=== PATIENT | male | born 1975 | race Caucasian/White ===

== ENCOUNTER 2017-06-05 09:25 | Day surgery (SDC) | payer OTHER ==
--- NOTE | 2017-06-04 12:43 | PDGENHP ---
History and Physical - Chief Complaint LEFT HIP PAIN - History of Present Illness Diagnosis: 1. 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 Right~Early Osteoarthritis 3. ~~Left Borderline Hip Dysplasia HISTORY OF PRESENT ILLNESS: Stephenis a 42 y.o.~very ~active male~who I have had the pleasure to consult on today. I have enjoyed meeting him. He~lives in [place]. 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 ~He~is ; he~has no~children. ~Stephenenjoys trail running , mountain biking, hiking and snowboarding. Samuel's bilateral~hip pain (L>R)~started March 2015, with no~recalled trauma or injury, and with no~previous complaints. Stephendoes not have~a known history of hip dysplasia. Presentation today is of anterior and posterior bilateral~hip pain. ~The hip does not~wake him~at night and does~click and catch on him. Sitting does not present a problem~for him. Stephendoes not~report suffering from lower back pain episodes. Stephenhas not~participated in physical therapy and has not~tried other conservative measures. Stephenhas not~utilized medication for pain management. Stephenunderstands that he~has a hip and pelvis problem which should be researched and wishes to get a better understanding of his~hip status, followed by an establishment of a treatment strategy, hoping heHeathwould be able to get back to his~well being active life. History: Past medical history: ~ None which is relevant Relevant familial history: Father/grandfather: [place] in 60s with HTN Past surgical history: No. Surgery Anesthesia 1 VATs bilateral (spoontaneous pneumotorax) general Stephendenies problematic issues with general anesthesia in the past. I have reviewed, verified and agree with the past medical, surgical, family and social history. Current Medications:Heathcurrently has no medications in their medication list. ALLERGIES:~has No Known Allergies. Objective: Physical Examination: Stephenis 6~feet 0~inches tall and weighs 160~Lbs. Stephenis AAO x3; he~is well- nourished, in NAD. Skin is warm and dry. ~Breathing is non-labored. ~CV with RRR by pulse. Abdomen is soft, NTND. Currently, he~walks with a abnormal antalgic~gait favoring RIGHT LEG. Trendelenburg sign is negative~and proprioception is normal, both~sides. He~presents with no~signs of joint laxity. Beightons Score: 0 Lower spine examination is negative~for sciatic or femoral nerve irritation with negative~SLR &~femoral stretch tests. Range of motion of the spine is normal~for flexion, extension, and rotations, with no~associated pain. Strength, Sensation and pulses are normal - bilaterally Ankles and knees exams are normal~and no~mal-alignment is evident. He~has no leg length discrepancy. Thigh circumference is symmetric~with no evidence for muscle atrophy~on both~ sides. Hip ROM (degrees): FL ER At 90~hip FL IR At 90~hip FL AB AD EX IR Neutral hip ER Neutral hip R 105 50 20 30 10 5 35 15 L 100 50 20 30 5 10 35 15 Specific hip and pelvis tests: Impingement Test NED Roll Add. Longus R +++ +++ Negative + L +++ +++ Negative + Glut. Med ITB Posterior Imp R Negative 5/5 strength Negative 5/5 strength Negative L Negative 5/5 strength Negative 5/5 strength Negative Squeeze test measured strong Bony Symphysis pubis is painful~to touch while concentric activity of the rectus abdominis, does~produce pain at its insertion. Ilio Psos specific tests are~positive for pain during cycling~for both hips~and remarkable for~non painful snap~ON LEFT. HF has good strength, minimal pain both hips. Posterior/lateral~capsule tenderness bilaterally Greater trochanteric burse is pain free~on both hips. Piriformis tests: FAIR is negative, with no~local signs of neuritis related to sciatic nerve. SIJs examination is normal~with normal~NED in relation and local tenderness. Hamstrings tests are negative~functional contraction and negative~tendinopathy both hips. On a daily basis, the following percentages reflect Samuel's overall total pain: Deep hip: 100% Imaging: Radiology studies which I have personally reviewed, analyzed and measured are below: XR: AP of the hip and pelvis: Performed in a good~technique Coccyx to pubic symphysis distance 1~cm. 0~degrees [place] Lines are preserved. Minimal~Pathological signs are seen in the Symphysis Pubis. Minimal~Pathological signs are seen at the Ischial tuberosity. ~ Specific measurements show: NSA~ LCE Sourcil~Angle Sharp's angle Lat. Cam Lat. Pincer C.Over~sign Head~Coverage % ATDmm R N 29 7 41 + - - N N L N 24 10 44 + - - N N Pos. wall sign ISS NAD ~~Dysplasia Comments R Negative Negative 23~mm Negative L Negative Negative 19~mm + Sclerosis Sup. Lat. OA Cysts Joint Space-WBZ Joint Space-Medial R + + + 4.6~mm 2.4~mm L Negative Negative Negative 5.2~mm 4.1~mm RIGHT Hip: labral calcification, narrowing joint space, pitting cyst X Table lateral: Anterior cam lesion is seen~on both hips. Alpha Angle: ~ Right 83~dergrees Left 86~degrees MRI shows: Right hip with pitting cyst in femoral neck, thinning cartilage on the right Impression and plan: Samuel~is a 42 y.o.~active male~suffering from symptomatic bilateral~hip pain due to Bilateral~Femoroacetabular impingement (KACEY) Cam type, with~resultant labral tear, Right~Early Osteoarthritis~causing significant disability to him~and altering his~sport and life activities. Physical examination, imaging, and his~story correspond with the diagnosis mentioned above. I explained that femoroacetabular impingement (KACEY) arises due to a bony or soft tissue conflict between the femur (ball) and acetabulum (socket) caused by an abnormality in the shape of the hip joint. Over time, repetitive impingement can result in damage to the labrum and adjacent surface cartilage within the socket, ultimately giving rise to progressive osteoarthritis of the hip. I explained that although a labral tear can be a source of pain, it is rarely the root of the problem and typically occurs secondary to an underlying abnormality in the shape and mechanics of the hip joint. ~ I reviewed conservative treatment options for KACEY including activity modification to avoid positions of impingement, physical therapy, non-steroidal anti-inflammatory medications, and various injections (corticosteroid and PRP) aimed at reducing inflammation in the hip joint or/and preventing dynamic impingement. PRP injections may promote healing and reduce symptoms in certain cases but it will not repair chronically damaged tissue. Although these measures may help to buy time and reduce current level of symptoms, they are not a definitive solution to the problem given the underlying abnormality in the shape of the hip joint. Patients who have failed conservative management and continue to experience symptoms are candidates for hip arthroscopy, a minimally invasive surgery that can definitively address the underlying problem. Hip arthroscopy typically includes treating the labrum with either repair or reconstruction of the torn labrum; as well as addressing the underlying abnormalities by restoring the normal shape to the hip joint. ~If the cartilage is damaged a Microfracture surgical procedure may also be necessary to help stimulate the growth of fibrocartilage. ~If a patient requires a labral reconstruction or a Microfracture, the initial rehabilitation from the surgery may take longer, but the rodent exterminator results are typically favorable. We discussed the fact that because the cartilage in his RIGHT hip has diminished , the rodent exterminator outcome after a hip arthroscopy is less predictable. ~For this reason the likelihood of having a total joint replacement on the right side is higher in the future. At this point his options for Right side are: 1. Do nothing 2. Injections that can take pain away for a short period 3. Hip arthroscopy 4. Wait for total joint replacement At this stage considering his young age and (high) activity level I still believe that hip arthroscopy would be the next best step for him. The left hip is in good shape without the early arthritic signs seen on the right, for this side Hip Arthroscopy would be the best plan of care. I reviewed the technical aspects of hip arthroscopy including risks, benefits, and expected course of recovery. Samuel~understands that hip arthroscopy is a minimally invasive outpatient procedure carried out through small incisions on the outer aspect of the hip joint. During surgery, the labral tear will be identified and either repaired or reconstructed~using bone anchors and suture material. Additionally, any excessive bone will be removed with a high-speed elton to reshape the hip joint and restore normal anatomy. Risks include infection, bleeding, injury to nearby nerves or vessels, stiffness, persistent pain, instability, venous thromboembolic disease, and traction related complications including temporary foot numbness. Rarely, revision surgery may be required to address these problems. Overall recovery takes approximately 4~ 8~months depending on the extent of damage and degree of repair. In the event that the labral tissue quality is inadequate for successful repair and healing, Samuel~understands that a labral reconstruction will be performed. This procedure entails placing a cadaver tissue graft within the hip joint and stabilizing it with bone anchors to build a new labrum. The overall recovery time for labral reconstruction is similar to that of labral repair, although the surgical procedure takes longer to perform. Stephenwill review the info presented. In order to obtain more detailed information regarding the alignment, orientation, and shape of the bony hip and pelvis I will order a CT scan to be performed. The results of the CT scan, including femoral torsion and acetabular version measured values and 3D images, will aid me in deciding on the best treatment strategy and surgical pre-planning. Stephenwill contact us if he~wishes to pursue further treatment in the future. Stephenis happy with this plan. I have also supplied him~with handouts, outlining the expected surgical treatment and rehab involved. I wish~Stephenall the best, ~~ Giancarlo Del Castillo, PAC History Information - Allergies/Home Medication List Allergies/Adverse Reactions: No Known Allergies Allergy (Unverified 10/26/10 19:15) Home Medications: NO HOME MEDICATIONS 10/26/10 [Last Taken Unknown] I have personally reviewed and updated: medical history - Social History Smoking Status: Never smoked Review of Systems Review of Systems: Physical Exam Physical Exam:
[2017-06-05] MEDS ORDERED: ACETAMINOPHEN 500 MG TAB PO ONE (09:48)
[2017-06-05] MEDS ORDERED: PREGABALIN 150 MG CAP PO ONE (09:48)
[2017-06-05] MEDS ORDERED: ceFAZolin 2 GM/SWFI 2 GM/20 ML SYR IVP ONE ×2 (09:48→10:00)
[2017-06-05] MEDS ORDERED: MIDAZOLAM 2 MG/2 ML VIAL IVP ONE (10:23)
--- NOTE | 2017-06-05 10:23 | PDANEPAE ---
ANE History of Present Illness 42 yo for hip arthoscopy ANE Past Medical History - Cardiovascular History Hx Hypertension: No Hx Arrhythmias: No Hx Chest Pain: No Hx Coronary Artery / Peripheral Vascular Disease: No Hx CHF / Valvular Disease: No Hx Palpitations: No - Pulmonary History Hx COPD: No Hx Asthma/Reactive Airway Disease: No Hx Recent Upper Respiratory Infection: No Hx Oxygen in Use at Home: No Hx Sleep Apnea: No Sleep Apnea Screening Result - Last Documented: Negative - Neurologic History Hx Cerebrovascular Accident: No Hx Seizures: No Hx Dementia: No - Endocrine History Hx Diabetes: No - Renal History Hx Renal Disorders: No - Liver History Hx Hepatic Disorders: No - Neurological & Psychiatric Hx Hx Neurological and Psychiatric Disorders: No - Cancer History Hx Cancer: No - Congenital Disorder History Hx Congenital Disorders: No - GI History Hx Gastrointestinal Disorders: No - Chronic Pain History Chronic Pain: Yes (LT HIP) - Surgical History Prior Surgeries: SPONT PNEUMOTHORAX EDGAR. SURGICAL REPAIRS ANE Review of Systems Review of Systems: - Exercise capacity METS (RN): 4 METS ANE Patient History - Allergies Allergies/Adverse Reactions: No Known Allergies Allergy (Unverified 10/26/10 19:15) - Home Medications Home medications: home medication list seen and reviewed Home Medications: NO HOME MEDICATIONS 10/26/10 [Last Taken Unknown] - NPO status NPO Status: no food or drink >8 hours - Smoking Hx Smoking Status: Never smoked ANE Labs/Vital Signs - Vital Signs Height: 6 ft Weight: 72.575 kg ANE Physical Exam - Airway Neck exam: FROM Mallampati Score: Class 2 - Pulmonary Pulmonary: no respiratory distress - Cardiovascular Cardiovascular: regular rate and rhythym - ASA Status ASA Status: I ANE Anesthesia Plan Anesthesia Plan: general endotracheal anesthesia
[2017-06-05 10:25] VITALS: PULSE 52
[2017-06-05] MEDS ORDERED: EPINEPHrine 30 MG/30 ML MDV (0.1 MG/0.1 ML) ONE (10:31)
[2017-06-05] MEDS ORDERED: BUPIVACAINE 0.25% 30 ML SDV ONE (10:31)
[2017-06-05] MEDS ORDERED: fentaNYL 250 MCG/5 ML INJ ONE (11:05)
[2017-06-05] MEDS ORDERED: PROPOFOL/EMULSION 500 MG/50 ML BOTTLE IV ONE ×2 (11:05→13:19)
[2017-06-05] MEDS ORDERED: REMIFENTANIL HCL 1 MG VIAL ONE ×2 (11:05→13:19)
[2017-06-05] MEDS ORDERED: ONDANSETRON 4 MG/2 ML VIAL ONE (14:48)
[2017-06-05] MEDS ORDERED: ROCURONIUM 100 MG/10 ML VIAL ONE (14:48)
[2017-06-05] MEDS ORDERED: KETOROLAC 30 MG/1 ML SDV ONE (14:48)
[2017-06-05] MEDS ORDERED: fentaNYL 100 MCG/2 ML INJ IVP PRN (15:03)
[2017-06-05] MEDS ORDERED: NALOXONE HCL 0.4 MG/ML INJ IVP PRN (15:03)
[2017-06-05] MEDS ORDERED: ONDANSETRON 4 MG/2 ML VIAL IVP PRN (15:03)
[2017-06-05] MEDS ORDERED: PROMETHAZINE HCL 25 MG/ML INJ IVP PRN (15:03)
[2017-06-05] MEDS ORDERED: OXYCODONE/APAP 5/325 TAB PO PRN (15:04)
--- NOTE | 2017-06-05 15:30 | POSTANESTH ---
Post Anesthetic Evaluation Cardiovascular Status: Normal, Stable Respiratory Status: Normal, Stable Level of Consciousness/Mental Status: Can Participate in Eval Pain Control: Adequate, Prn Tx Ordered Nausea/Vomiting Control: Adequate, Prn Tx Ordered Complications Possibly Related to Anesthesia: None Noted
[2017-06-05 16:10] VITALS: RESP 18
[2017-06-05 18:26] VITALS: BP 120/82; O2SAT 97
[2017-06-05 18:27] VITALS: TEMP 96.8
== END 2017-06-05 18:25 | disposition home or self-care (01) ==
LOC: FSGY 09:25
PROVIDERS: ATTEND Orthopaedic Surgery Sports Medicine
PROC: 4A1 Measurement and Monitoring, Physiological Systems, Monitoring (ICD-10-PCS; 2017-06-05)
PROC: 0SBB4ZZ Excision of Left Hip Joint, Percutaneous Endoscopic Approach (ICD-10-PCS; principal; 2017-06-05 11:00)
PROC: 0SQB4ZZ Repair Left Hip Joint, Percutaneous Endoscopic Approach (ICD-10-PCS; principal; 2017-06-05 11:00)
PROC: BQ111ZZ Fluoroscopy of Left Hip using Low Osmolar Contrast (ICD-10-PCS; 2017-06-05 11:00)
DX: M25.852 Other specified joint disorders, left hip (principal); M16.12 Unilateral primary osteoarthritis, left hip; Q65.89 Other specified congenital deformities of hip
CPT/HCPCS: C1713; J0171; J0690; J1885; J2250; J2405; J2704; J3010

== ENCOUNTER 2017-12-18 05:41 | Day surgery (SDC) | payer OTHER ==
--- NOTE | 2017-12-17 21:24 | PDGENHP ---
History and Physical - Chief Complaint RIGHT HIP PAIN - History of Present Illness Diagnosis: 1. Bilateral~Femoroacetabular impingement (KACEY) Cam type,~with~resultant labral tear; LEFT>RIGHT 2. Right~Early Osteoarthritis 3. ~~Left Borderline Hip Dysplasia HISTORY OF PRESENT ILLNESS: Stephenis a 42 y.o.~very~~active male~who I have had the pleasure to consult on today. 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 ~Stephenenjoys trail running , mountain biking, hiking and snowboarding. Samuel's~bilateral~hip pain (L>R)~started March 2015, with~no~recalled trauma or injury, and with no~previous complaints. Stephendoes not have~a known history of hip dysplasia. Presentation today is of~anterior and posterior~bilateral~hip pain. ~The hip~ does not~wake him~at night and does~click and catch on him. Sitting~does not present a problem~for him.~Stephendoes not~report suffering from lower back pain episodes. Stephenhas not~participated in physical therapy and has not~tried other conservative measures. Stephenhas not~utilized medication for pain management. Stephenunderstands that he~has a hip and pelvis problem which should be researched and wishes to get a better understanding of his~hip status, followed by an establishment of a treatment strategy, hoping he~would be able to get back to his~well being active life. History: Past medical history:~~ None which is relevant~ Relevant familial history:~Father/grandfather: [place] in 60s with HTN Past surgical history:~ No. Surgery Anesthesia 1 VATs bilateral (spoontaneous pneumotorax) general Stephendenies problematic issues with general anesthesia in the past. I have reviewed, verified and agree with the past medical, surgical, family and social history. Current Medications:~currently has no medications in their medication list. ALLERGIES:~has No Known Allergies. Objective: Physical Examination: Stephenis 6~feet 0~inches tall and weighs 160~Lbs. Stephenis AAO x3; ford~is well- nourished, in NAD. Skin is warm and dry. ~Breathing is non-labored. ~CV with RRR by pulse. Abdomen is soft, NTND. Currently,~he~walks with a abnormal~antalgic~gait favoring RIGHT LEG. Trendelenburg sign is~negative~and proprioception is normal,~both~sides. He~presents with no~signs of joint laxity. Beightons Score:~0 Lower spine examination is~negative~for sciatic or femoral nerve irritation with negative~SLR &~femoral stretch tests. Range of motion of the spine is normal~for flexion, extension, and rotations, with no~associated pain. Strength, Sensation and pulses are~normal -~bilaterally Ankles and knees exams are~normal~and no~mal-alignment is evident. He~has no leg length discrepancy. Thigh circumference is~symmetric~with no evidence for muscle atrophy~on both~ sides. Hip ROM (degrees): FL ER At 90~hip FL IR At 90~hip FL AB AD EX IR Neutral hip ER Neutral hip R 105 50 20 30 10 5 35 15 L 100 50 20 30 5 10 35 15 Specific hip and pelvis tests: Impingement Test NED Roll Add. Longus R +++ +++ Negative + L +++ +++ Negative + Glut. Med ITB Posterior Imp R Negative 5/5 strength Negative 5/5 strength Negative L Negative 5/5 strength Negative 5/5 strength Negative Squeeze test measured~strong Bony Symphysis pubis is~painful~to touch while concentric activity of the rectus abdominis, does~produce pain at its insertion. Ilio Psos specific tests are~positive for pain during cycling~for both hips~and remarkable for~non painful snap~ON LEFT. HF has~good strength, minimal pain~both hips. Posterior/lateral~capsule tenderness bilaterally Greater trochanteric burse is~pain free~on both hips. Piriformis tests: FAIR is~negative,~with no~local signs of neuritis related to sciatic nerve. SIJs examination is~normal~with normal~NED in relation and local tenderness. Hamstrings tests are~negative~functional contraction and negative~tendinopathy both hips. On a daily basis, the following percentages reflect~Samuel's overall total pain: Deep hip:~100% Imaging: Radiology studies which I have personally reviewed, analyzed and measured are below: XR: AP of the hip and pelvis: Performed in a~good~technique Coccyx to pubic symphysis distance~1~cm. 0~degrees [place] Lines are~preserved. Minimal~Pathological signs are seen in the Symphysis Pubis. Minimal~Pathological signs are seen at the Ischial tuberosity. ~ Specific measurements show: NSA~ LCE Sourcil~Angle Sharp's angle Lat. Cam Lat. Pincer C.Over~sign Head~Coverage % ATDmm R N 29 7 41 + - - N N L N 24 10 44 + - - N N Pos. wall sign ISS NAD ~~Dysplasia Comments R Negative Negative 23~mm Negative L Negative Negative 19~mm + Sclerosis Sup. Lat. OA Cysts Joint Space-WBZ Joint Space-Medial R + + + 4.6~mm 2.4~mm L Negative Negative Negative 5.2~mm 4.1~mm RIGHT Hip: labral calcification, narrowing joint space, pitting cyst X Table lateral: Anterior cam lesion is~seen~on both hips. Alpha Angle: ~ Right~83~dergrees Left~86~degrees MRI shows:~Right hip with pitting cyst in femoral neck, thinning cartilage~on the right~ Impression and plan:~ Samuel~is a 42 y.o.~active male~suffering from symptomatic bilateral~hip pain due to Bilateral~Femoroacetabular impingement (KACEY) Cam type,~with~resultant labral tear,~Right~Early Osteoarthritis~causing significant disability to him~and altering his~sport and life activities. Physical examination, imaging, and~his~story correspond with the diagnosis mentioned above. I explained that femoroacetabular impingement (KACEY) arises due to a bony or soft tissue conflict between the femur (ball) and acetabulum (socket) caused by an abnormality in the shape of the hip joint. Over time, repetitive impingement can result in damage to the labrum and adjacent surface cartilage within the socket, ultimately giving rise to progressive osteoarthritis of the hip. I explained that although a labral tear can be a source of pain, it is rarely the root of the problem and typically occurs secondary to an underlying abnormality in the shape and mechanics of the hip joint. ~ I reviewed conservative treatment options for KACEY including activity modification to avoid positions of impingement, physical therapy, non-steroidal anti-inflammatory medications, and various injections (corticosteroid and PRP) aimed at reducing inflammation in the hip joint or/and preventing dynamic impingement. PRP injections may promote healing and reduce symptoms in certain cases but it will not repair chronically damaged tissue. Although these measures may help to buy time and reduce current level of symptoms, they are not a definitive solution to the problem given the underlying abnormality in the shape of the hip joint. Patients who have failed conservative management and continue to experience symptoms are candidates for hip arthroscopy, a minimally invasive surgery that can definitively address the underlying problem. Hip arthroscopy typically includes treating the labrum with either repair or reconstruction of the torn labrum; as well as addressing the underlying abnormalities by restoring the normal shape to the hip joint. ~If the cartilage is damaged a Microfracture surgical procedure may also be necessary to help stimulate the growth of fibrocartilage. ~If a patient requires a labral reconstruction or a Microfracture, the initial rehabilitation from the surgery may take longer, but the watermelon harvesting supervisor results are typically favorable. We discussed the fact that because the cartilage in his RIGHT hip has diminished , the watermelon harvesting supervisor outcome after a hip arthroscopy is less predictable.~~For this reason the likelihood of having a total joint replacement on the right side is higher~in the future. At this point his options~for Right side~are: 1. Do nothing 2. Injections that can take pain away for a short period 3. Hip arthroscopy 4. Wait for total joint replacement At this stage considering his young age and (high) activity level I still believe that hip arthroscopy would be the next best step for him. The left hip is in good shape without the early arthritic signs seen on the right, for this side Hip Arthroscopy would be the best plan of care. I reviewed the technical aspects of hip arthroscopy including risks, benefits, and expected course of recovery.~Samuel~understands that hip arthroscopy is a minimally invasive outpatient procedure carried out through small incisions on the outer aspect of the hip joint. During surgery, the labral tear will be identified and either repaired or reconstructed~using bone anchors and suture material. Additionally, any excessive bone will be removed with a high-speed elton to reshape the hip joint and restore normal anatomy. Risks include infection, bleeding, injury to nearby nerves or vessels, stiffness, persistent pain, instability, venous thromboembolic disease, and traction related complications including temporary foot numbness. Rarely, revision surgery may be required to address these problems. Overall recovery takes approximately 4~ 8~months depending on the extent of damage and degree of repair. In the event that the labral tissue quality is inadequate for successful repair and healing,~Stephenunderstands that a labral reconstruction will be performed. This procedure entails placing a cadaver tissue graft within the hip joint and stabilizing it with bone anchors to build a new labrum. The overall recovery time for labral reconstruction is similar to that of labral repair, although the surgical procedure takes longer to perform. Samuel~will review the info presented. In order to obtain more detailed information regarding the alignment, orientation, and shape of the bony hip and pelvis I will order a CT scan to be performed. The results of the CT scan, including femoral torsion and acetabular version measured values and 3D images, will aid me in deciding on the best treatment strategy and surgical pre-planning. Stephenwill contact us if he~wishes to pursue further treatment in the future. Stephenis happy with this plan. I have also supplied~him~with handouts, outlining the expected surgical treatment and rehab involved. I wish~SamuelHeathall the best, ~~ Giancarlo Del Castillo, PAC History Information - Allergies/Home Medication List Allergies/Adverse Reactions: No Known Allergies Allergy (Verified 11/21/17 10:46) Home Medications: NK [No Known Home Meds] 11/21/17 [Last Taken Unknown] I have personally reviewed and updated: medical history - Social History Smoking Status: Never smoked Review of Systems Review of Systems: Physical Exam Physical Exam:
[2017-12-18] MEDS ORDERED: PREGABALIN 150 MG CAP PO ONE (06:02)
[2017-12-18] MEDS ORDERED: ceFAZolin 2 GM/DEXTROSE 100 ML IV ONE (06:02)
[2017-12-18] MEDS ORDERED: ACETAMINOPHEN 500 MG TAB PO ONE (06:02)
[2017-12-18] MEDS ORDERED: LR 1,000 ML IV ONE (06:05)
[2017-12-18] MEDS ORDERED: LIDOCAINE 1% 2 ML INJ ID PRN (06:05)
[2017-12-18] MEDS ORDERED: BUPIVACAINE 0.25% 30 ML SDV ONE (06:47)
[2017-12-18] MEDS ORDERED: EPINEPHrine 1 MG/ML INJ ONE (06:47)
[2017-12-18] MEDS ORDERED: EPINEPHrine 30 MG/30 ML MDV (0.1 MG/0.1 ML) ONE (06:47)
[2017-12-18] MEDS ORDERED: MIDAZOLAM 2 MG/2 ML VIAL IVP ONE (06:55)
--- NOTE | 2017-12-18 06:58 | PDANEPAE ---
ANE History of Present Illness right hip pain ANE Past Medical History - Cardiovascular History Hx Hypertension: No Hx Arrhythmias: No Hx Chest Pain: No Hx Coronary Artery / Peripheral Vascular Disease: No Hx CHF / Valvular Disease: No Hx Palpitations: No - Pulmonary History Hx COPD: No Hx Asthma/Reactive Airway Disease: No Hx Recent Upper Respiratory Infection: No Hx Oxygen in Use at Home: No Hx Sleep Apnea: No Sleep Apnea Screening Result - Last Documented: Negative Pulmonary History Comment: HX OF SPONTANEOUS PNEUMOTHORAX- BILATERALLY - Neurologic History Hx Cerebrovascular Accident: No Hx Seizures: No Hx Dementia: No - Endocrine History Hx Diabetes: No Hypothyroid: No Hyperthyroid: No Obesity: no - Renal History Hx Renal Disorders: No - Liver History Hx Hepatic Disorders: No - Neurological & Psychiatric Hx Hx Neurological and Psychiatric Disorders: No - Cancer History Hx Cancer: No - Congenital Disorder History Hx Congenital Disorders: No - GI History Hx Gastrointestinal Disorders: No - Other Health History Other Health History: NA - Chronic Pain History Chronic Pain: Yes (RIGHT HIP) - Surgical History Prior Surgeries: 06/05/17 LEFT HIP SCOPE AND FEMOROPLASTY WITH NAKIA HAYDEE. SPONT PNEUMOTHORAX EDGAR. SURGICAL REPAIRS ANE Review of Systems Review of systems is: negative Review of Systems: - Exercise capacity Exercise capacity: >=4 METS METS (RN): 4 METS ANE Patient History - Allergies Allergies/Adverse Reactions: No Known Allergies Allergy (Verified 11/21/17 10:46) - Home Medications Home Medications: NK [No Known Home Meds] 11/21/17 [Last Taken Unknown] - NPO status NPO Status: no food or drink >8 hours NPO Since - Liquids (Date): 12/17/17 NPO Since - Liquids (Time): 21:00 NPO Since - Solids (Date): 12/17/17 NPO Since - Solids (Time): 20:00 - Anes Hx Anes Hx: no prior problems - Smoking Hx Smoking Status: Never smoked - Alcohol Use Alcohol Use: Occasionally - Family Anes Hx Family Anes Hx: none Family Hx Anesthesia Complications: NONE ANE Labs/Vital Signs - Vital Signs Vital Signs: reviewed preoperatively; see RN documention for details Blood Pressure: 107/72 Heart Rate: 54 Respiratory Rate: 15 O2 Sat (%): 95 Height: 182.88 cm Weight: 72.575 kg ANE Physical Exam - Airway Mallampati Score: Class 2 Mouth exam: normal dental/mouth exam - Pulmonary Pulmonary: no respiratory distress - Cardiovascular Cardiovascular: regular rate and rhythym - ASA Status ASA Status: II ANE Anesthesia Plan Anesthesia Plan: general endotracheal anesthesia
[2017-12-18] MEDS ORDERED: PROPOFOL 200 MG/20 ML VIAL ONE (07:17)
[2017-12-18] MEDS ORDERED: fentaNYL 100 MCG/2 ML INJ ONE ×2 (07:17→12:00)
[2017-12-18] MEDS ORDERED: ROCURONIUM 100 MG/10 ML VIAL ONE (07:17)
[2017-12-18] MEDS ORDERED: LIDOCAINE 2% 2 ML INJ ONE (07:17)
[2017-12-18] MEDS ORDERED: GLYCOPYRROLATE 0.2 MG/1 ML VIAL ONE (07:34)
[2017-12-18] MEDS ORDERED: ceFAZolin 1 GM VIAL ONE ×2 (11:11)
[2017-12-18] MEDS ORDERED: KETOROLAC 30 MG/1 ML SDV ONE (11:21)
[2017-12-18] MEDS ORDERED: ONDANSETRON 4 MG/2 ML VIAL ONE ×2 (11:21→12:00)
[2017-12-18] MEDS ORDERED: oxyCODONE IR 5 MG TAB PO PRN (11:53)
[2017-12-18] MEDS ORDERED: ACETAMINOPHEN 500 MG TAB PO PRN (11:53)
[2017-12-18] MEDS ORDERED: PROMETHAZINE HCL 25 MG/ML INJ IVP PRN (11:53)
[2017-12-18] MEDS ORDERED: NALOXONE HCL 0.4 MG/ML INJ IVP PRN (11:53)
[2017-12-18] MEDS ORDERED: ONDANSETRON 4 MG/2 ML VIAL IVP PRN (11:53)
[2017-12-18] MEDS ORDERED: HYDROCODONE/APAP 5/325 TAB PO PRN (11:53)
[2017-12-18] MEDS ORDERED: HYDROmorphONE/DILAUDID 2 MG/ML INJ ONE (12:00)
[2017-12-18] MEDS: fentaNYL 100 MCG/2 ML INJ IVP PRN ×2 (12:05→12:15)
[2017-12-18] MEDS: HYDROmorphONE/DILAUDID 2 MG/ML INJ IVP PRN ×2 (12:06→12:15)
[2017-12-18] MEDS ORDERED: oxyCODONE IR 5 MG TAB ONE (16:09)
[2017-12-18 16:16] VITALS: BP 92/62
--- NOTE | 2017-12-18 18:53 | POSTOPPROG ---
Post Op Note Date of Operation: 12/18/17 Surgeon: Vinny Stephens Thread Weaver: Dr. Aguilar Anesthesia: GET(General Endotracheal) Pre-op Diagnosis: Right KACEY Post-op Diagnosis: same Procedure: Right Hip Arthroscopy Inf/Abcess present in the surg proc area at time of surgery?: No
== END 2017-12-18 16:35 | disposition home or self-care (01) ==
LOC: FSGY 05:41
PROVIDERS: ATTEND Orthopaedic Surgery Sports Medicine
PROC: 0QB40ZZ Excision of Right Acetabulum, Open Approach (ICD-10-PCS; principal; 2017-12-18 07:15)
PROC: 0SQB4ZZ Repair Left Hip Joint, Percutaneous Endoscopic Approach (ICD-10-PCS; principal; 2017-12-18 07:15)
PROC: 0QB74ZZ Excision of Left Upper Femur, Percutaneous Endoscopic Approach (ICD-10-PCS; principal; 2017-12-18 07:15)
DX: M25.851 Other specified joint disorders, right hip (principal); M76.891 Other specified enthesopathies of right lower limb, excluding foot; M16.31 Unilateral osteoarthritis resulting from hip dysplasia, right hip
CPT/HCPCS: C1713; J0171; J0690; J1170; J1885; J2250; J2405; J2704; J3010